=== PATIENT | female | born 1950 | race Hispanic/Latino ===

== ENCOUNTER → 2018-05-12 | Outpatient (CLI) | payer MEDICARE | END | disposition home or self-care (01) | LOC: SHCH 11:14 | PROVIDERS: ATTEND Internal Medicine Cardiovascular Disease | DX: I65.23 Occlusion and stenosis of bilateral carotid arteries (principal); I10 Essential (primary) hypertension | CPT/HCPCS: 93880 ==

== ENCOUNTER → 2018-11-05 | Outpatient (CLI) | payer MEDICARE | END | disposition home or self-care (01) | LOC: RAH 14:49 | PROVIDERS: ATTEND Internal Medicine Cardiovascular Disease | DX: R06.02 Shortness of breath (principal); R79.1 Abnormal coagulation profile | CPT/HCPCS: 71046; 78580; A9540 ==

== ENCOUNTER → 2018-11-26 | Outpatient (CLI) | payer MEDICARE ==
[~2018-11-26] VITALS: Ht 152.4 cm; Wt 73.9 kg
[~2018-11-26] MED LIST: REGADENOSON 0.4 MG/5 ML PF SYG IVP SCH
== END | disposition home or self-care (01) ==
LOC: SHCH 08:41
PROVIDERS: ATTEND Internal Medicine Cardiovascular Disease
DX: I25.810 Atherosclerosis of coronary artery bypass graft(s) without angina pectoris (principal); R06.00 Dyspnea, unspecified
CPT/HCPCS: 78452; 93017; 96374; A9500 ×2; J2785

== ENCOUNTER → 2019-03-11 | Outpatient (CLI) | payer MEDICARE ==
[~2019-03-11] MED LIST changes: +ALENDRONATE; +ASPI-555 PO; +CARV25TA PO; +DULA0.75 SQ; +FURO40TA5 PO; +INSU100I35 SQ; +LOSA100T58 PO; +MECL-183 PO; +MEDR5TAB5 PO; +METO2.5T2 PO; +PANT40TA25 PO; +PROM25TA7 PO; -REGADENOSON 0.4 MG/5 ML PF SYG IVP SCH
== END | disposition home or self-care (01) ==
LOC: SHCH 10:39
PROVIDERS: ATTEND Internal Medicine Cardiovascular Disease
DX: I87.2 Venous insufficiency (chronic) (peripheral) (principal); I73.9 Peripheral vascular disease, unspecified
CPT/HCPCS: 93925; 93970

== ENCOUNTER → 2019-08-25 | Outpatient (CLI) | payer MEDICARE | END | disposition home or self-care (01) | LOC: SHCH 11:23 | PROVIDERS: ATTEND Internal Medicine Cardiovascular Disease | DX: Z09 Encounter for follow-up examination after completed treatment for conditions other than malignant neoplasm (principal) ==

== ENCOUNTER 2019-11-22 07:10 | Day surgery (SDC) | payer MEDICARE ==
[~2019-11-22] VITALS: Ht 149.9 cm; Wt 75.0 kg
[2019-11-22] VITALS (7 sets, daily range): BP systolic 87–139; BP diastolic 48–64
[~2019-11-22 07:10] MED LIST changes: -ASPI-555 PO; +ASPI-556 PO; -PANT40TA25 PO; +PANT40TA54 PO; +SODIUM CHLORIDE 0.9% 1000ML 1,000 ML IV ONE
[2019-11-22] MEDS ORDERED: BOTULINUM TOXIN TYPE A 100 UNITS/VIAL INJ SCH (08:00)
[2019-11-22] MEDS ORDERED: DOCU100C33 PO (10:28)
[2019-11-22] MEDS ORDERED: RIVA2.5T PO (10:28)
[2019-11-22] MEDS ORDERED: NITR30OI6 RC (10:30)
[2019-11-22] MEDS ORDERED: MIDAZOLAM HCL 1 MG/ML 2ML VIAL ONE (11:20)
[2019-11-22] MEDS ORDERED: PROPOFOL 10 MG/ML 20ML VIAL IV ONE (11:20)
== END 2019-11-22 12:30 | disposition home or self-care (01) ==
LOC: DAH 07:10
PROVIDERS: ATTEND Internal Medicine Gastroenterology
DX: R19.4 Change in bowel habit (principal); K63.5 Polyp of colon; K60.2 Anal fissure, unspecified; K62.89 Other specified diseases of anus and rectum; E11.9 Type 2 diabetes mellitus without complications; I25.10 Atherosclerotic heart disease of native coronary artery without angina pectoris; E78.5 Hyperlipidemia, unspecified; I25.2 Old myocardial infarction; Z95.1 Presence of aortocoronary bypass graft; I11.0 Hypertensive heart disease with heart failure; I50.9 Heart failure, unspecified; Z79.01 Long term (current) use of anticoagulants; Z79.82 Long term (current) use of aspirin; Z79.899 Other long term (current) drug therapy; Z20.828 Contact with and (suspected) exposure to other viral communicable diseases
CPT/HCPCS: 45385; 82948 ×2; A4215; A4221; A4222; A4223; A4606; A4620; A4649; A4657; A4663; C9803; J0585; J2250; J2704; J7030; U0003

== ENCOUNTER → 2020-02-10 | Outpatient (CLI) | payer MEDICARE ==
[~2020-02-10] MED LIST changes: -ALENDRONATE; +DOCU100C33 PO; -MECL-183 PO; -METO2.5T2 PO; +NITR30OI6 RC; -PROM25TA7 PO; -SODIUM CHLORIDE 0.9% 1000ML 1,000 ML IV ONE
== END | disposition home or self-care (01) ==
LOC: SHCH 13:40
PROVIDERS: ATTEND Internal Medicine Cardiovascular Disease
DX: I34.2 Nonrheumatic mitral (valve) stenosis (principal)
CPT/HCPCS: 93306

== ENCOUNTER → 2020-04-26 | Outpatient (CLI) | payer MEDICARE | END | disposition home or self-care (01) | LOC: SHCH 14:40 | PROVIDERS: ATTEND Internal Medicine Cardiovascular Disease | DX: I87.2 Venous insufficiency (chronic) (peripheral) (principal); I73.9 Peripheral vascular disease, unspecified | CPT/HCPCS: 93925; 93970 ==